=== PATIENT | male | born 1960 | race Caucasian/White ===

== ENCOUNTER → 2017-04-09 | Outpatient (CLI) | payer OTHER ==
[~2017-04-09] MED LIST: ASPI81TA28 PO; DSY/150 PO; FLUO10CA24 PO; FLUO20CA36 PO; GLC500 PO; GLIP1TAB85 PO; LPT10 PO; LSN5 PO; MORP1TAB12 PO; MULT-506 PO; NRN600 PO; OMEG1CAP71 PO; OMEP20CA9 PO; OXYC-57 PO; POLY335019 PO
[2017-04-09 17:31] LABS: BASO % 0.4 %; BASO ABS # 0.02 K/uL (0-0.2); COMPLETE YES; EOS % 4.7 %; IG% 0.2 %; LYMPH % 29.3 %; LYMPH ABS # 1.63 K/uL (1.2-3.4); MEAN CELL VOLUME 92.1 fL (80-100); MEAN CORPUSCULAR HGB CONC 33.7 g/dl (32-36); MEAN PLATELET VOLUME 9.6 fL (7.4-10.4); MONO % 10.6 %; NEUT % 54.8 %; PLATELET COUNT 211 K/uL (130-400); RED BLOOD COUNT 4.45 M/uL (4.7-6.1); WHITE BLOOD COUNT 5.57 K/uL (4.8-10.8)
[2017-04-09 17:42] LABS: ALT/SGPT 25 U/L (12-78); AST/SGOT 10 U/L (15-37); BLOOD UREA NITROGEN 15 mg/dl (7-18); BUN/CREATININE RATIO 16.6 (10-20); CARBON DIOXIDE 26 mmol/L (21-32); CHLORIDE 105 mmol/L (98-107); CREATININE 0.93 mg/dl (0.60-1.40); GLUCOSE 265 mg/dl (70-99); POTASSIUM 4.3 mmol/L (3.5-5.1); SODIUM 138 mmol/L (136-145)
[2017-04-09 17:53] LABS: ALB/GLOB RATIO 1.1 (0.9-2); ALKALINE PHOSPHATASE 67 U/L (45-117); THYROID STIMULATING HORMONE 0.582 uIu/ml (0.300-4.500)
[2017-04-09 18:04] LABS: LYME DISEASE AB IGG NEG (NEG); LYME DISEASE AB IGM NEG (NEG)
== END | disposition home or self-care (01) ==
LOC: C.LABPBG 11:32
PROVIDERS: ATTEND Physician Assistant
DX: G62.9 Polyneuropathy, unspecified (principal)

== ENCOUNTER → 2017-04-11 | Outpatient (CLI) | payer OTHER ==
[~2017-04-11] MED LIST changes: +GADAVIST IV PRN
--- NOTE | 2017-04-11 12:10 | DIAGNOSTIC IMAGING REPORT ---
THORACIC SPINE COMBO CLINICAL HISTORY: 56 years-old Male presenting with SYRINGOMYELIA, pain and numbness in the left arm for 6 years, now new right-sided pain and numbness. TECHNIQUE: Multisequence, multiplanar MR imaging of the thoracic spine was performed before and after the administration of intravenous contrast. IV contrast: 8 mL of Gadavist. COMPARISON: 01/01/2015. FINDINGS: Localizer images: Unremarkable. Normal thoracic kyphosis. Benign hemangioma noted in the T10 vertebral body. Remaining vertebral body symmetry normal height, alignment, bone marrow signal intensity. Intervertebral disc spaces preserved. Focal degenerative change at T3-4 with disc osteophyte complex mildly effacing the ventral thecal sac. No significant spinal canal or neural foraminal narrowing. Extensive postoperative changes of laminectomies of T2-T5 with adequate posterior decompression. Two central abnormal foci of spinal cord signal intensity with relative atrophy at the level of T3-4, indicating myelomalacia. No evidence of a syrinx. Postcontrast imaging demonstrates enhancement of the operative bed, expected postsurgical findings. No focal fluid collection. No abnormal spinal cord enhancement. Paraspinal soft tissues within normal limits. IMPRESSION: 1. Postoperative changes of posterior decompression of the upper thoracic spine. Interval evolution of myelomalacia at the level of T3-4. No evidence of a syrinx. 2. Small disc osteophyte complex at T3-4 slightly increased from prior. No significant spinal canal or neural foraminal narrowing. Electronically signed by: Mauricio Hinojosa M.D. 04/11/2017 12:09 PM Dictated Date/Time: 04/11/2017 11:59 AM
== END | disposition home or self-care (01) ==
LOC: C.MRIBC 10:29
PROVIDERS: ATTEND Physician Assistant
DX: G95.0 Syringomyelia and syringobulbia (principal); M25.78 Osteophyte, vertebrae